=== PATIENT | male | born 1960 | race Caucasian/White ===

== ENCOUNTER → 2020-06-16 10:14 | Outpatient (CLI) | payer BC, SELFPAY ==
--- NOTE | ~2020-06-16 | CT_ITS ---
EXAMINATION: CT sinus wo con DATE: 06/16/2020 10:35 INDICATION: Anosmia TECHNIQUE: Computed tomography (CT) of the paranasal sinuses was performed without intravenous contra st. The dose-length product was 297.70 mGy-cm. Automated exposure control and iterative reconstructio n technique were employed. COMPARISON: None FINDINGS: There is mucosal thickening of the frontal, ethmoid, sphenoid and maxillary sinuses. Mastoi ds are pneumatized. No depressed skull fractures. There is occlusion of the ostiomeatal units. There is rightward nasal septal deviation. IMPRESSION: 1. Advanced pansinusitis. Reviewed, dictated and finalized at location B. [employer] IMPRESSION: 1. Advanced pansinusitis.
== END ==
PROVIDERS: PCP Family Medicine; Visit Provider Family Medicine
DX: J32.4 Chronic pansinusitis (principal); J34.2 Deviated nasal septum
CPT/HCPCS: 70486

== ENCOUNTER 2025-05-15 10:30 | Outpatient (CLI) | payer OTHER, SELFPAY ==
--- NOTE | ~2025-05-15 | XR_ITS ---
EXAMINATION: XR shoulder LT min 2V, 05/15/2025 10:42 CDT HISTORY: Pain in left shoulder x 6 months, no surgery, no inj COMPARISON: No comparisons available. Findings: No acute fracture or malalignment. No significant degenerative changes. Soft tissues unremarkable. Impression: No acute fracture or malalignment. Reviewed, dictated and finalized at location P. Impression: No acute fracture or malalignment.
== END 2025-05-15 10:31 | disposition home or self-care (01) ==
LOC: GOSHIMG 10:35
PROVIDERS: PCP Family Medicine; Visit Provider Family Medicine
DX: M25.512 Pain in left shoulder (principal)
CPT/HCPCS: 73030